=== PATIENT | female | born 1945 | race Hispanic/Latino ===

== ENCOUNTER → 2023-11-08 | Day surgery (SDC) | payer MEDICARE ==
[~2023-11-08] MED LIST: AMLODIPINE BESY10 MG PO; BENAZEPRIL HCL10 MG PO; EPHEDRINE SULFATE INJ 50 MG/ML VIAL ONE; EVISTA60 MG PO; FENTANYL CITRATE/PF 100MCG/2 ML INJ ONE; GENTAMICIN 80MG/NS 100 ML 200 ML IV ONE; IOPAMIDOL 610MG/1ML 300 MG/ML VIAL IV ONE; LIDOCAINE HCL 2% LOCAL INJ 5 ML SDV VIAL INJ ONE; METOPROLOL TAR100 MG PO; OMEPRAZOLE40 MG PO; PROPOFOL IV EMULSION 10 MG/ML 20 ML VIAL ONE; SEVOFLURANE INHAL SOLN 250 ML PEN BTL ONE; SIMVASTATIN40 MG PO; VENTOLIN HFA18 GM INH
[2023-11-08] MEDS: LACTATED RINGER'S 1,000 ML ONE (08:07)
[2023-11-08 08:10] LABS: BASOPHILS # (AUTO) 0.1 (0.0-0.1); BASOPHILS % 0.7 % (0.0-1.0); EOSINOPHILS # (AUTO) 0.4 (0.0-0.4); EOSINOPHILS % 3.5 % (0.0-6.0); HEMATOCRIT 36.6 % (34.2-44.1); HEMOGLOBIN 11.6 g/dL (12.0-16.0); LYMPHOCYTES # (AUTO) 2.9 (1.0-3.2); LYMPHOCYTES % 28.8 % (18.0-39.1); MEAN CORPUSCULAR HGB CONC 31.7 g/dL (31-35); MEAN CORPUSCULAR VOLUME 88.4 fL (81-99); MONOCYTES # (AUTO) 0.9 (0.2-0.8); MONOCYTES % 9.3 % (4.4-11.3); NEUTROPHILS # (AUTO) 5.7 (2.1-6.9); NEUTROPHILS % 57.5 % (38.7-80.0); PLATELET COUNT 230 x10e3/uL (140-360); RED BLOOD COUNT 4.14 x10e6/uL (3.6-5.1); RED CELL DISTRIBUTION WIDTH 14.5 % (11.7-14.4)
[2023-11-08 08:59] LABS: ANION GAP 12.8 mmol/L (8-16); CALCIUM 9.3 mg/dL (8.4-10.2); CREATININE, SERUM 2.04 mg/dL (0.57-1.11); POTASSIUM 4.8 mmol/L (3.5-5.1)
[2023-11-08 11:04] LABS: EOSINOPHILS % (MANUAL) 3 % (0-7); LYMPHOCYTES % (MANUAL) 26 % (19-48); MONOCYTES % (MANUAL) 7 % (3.4-9.0); NEUTROPHILS % (MANUAL) 60 % (40-74); PLATELET ESTIMATE ADEQUATE; REACTIVE LYMPHOCYTES 4
[2023-11-08 11:05] LABS: PLATELET MORPHOLOGY COMMENT FEW GIANT; RBC MORPHOLOGY COMMENT NORMAL
[2023-11-08] MEDS: PHENAZOPYRIDINE HCL 100 MG TAB ONE (13:00)
[2023-11-08 13:15] VITALS: BP 131/61; PULSE 61; RESP 18; O2SAT 98
== END | disposition home or self-care (01) ==
LOC: OR 05:53
PROVIDERS: ATTEND Urology
DX: N13.30 Unspecified hydronephrosis (principal); N39.0 Urinary tract infection, site not specified; N81.10 Cystocele, unspecified; N81.6 Rectocele; N95.2 Postmenopausal atrophic vaginitis; N28.1 Cyst of kidney, acquired; R35.1 Nocturia; N32.89 Other specified disorders of bladder; N13.8 Other obstructive and reflux uropathy; I10 Essential (primary) hypertension; I71.40 Abdominal aortic aneurysm, without rupture, unspecified; Z88.0 Allergy status to penicillin; Z88.7 Allergy status to serum and vaccine; Z91.041 Radiographic dye allergy status; Z79.1 Long term (current) use of non-steroidal anti-inflammatories (NSAID); Z79.899 Other long term (current) drug therapy
CPT/HCPCS: 36415; 52005; 71046; 74420; 80048; 85025; 87086; 93005; C1758; J1580; J2001; J2704; J3010; J7121; Q9967